=== PATIENT | male | born 1980 | race Caucasian/White ===

== ENCOUNTER 2017-02-21 19:02 | Emergency (ER) | payer OTHER ==
[~2017-02-21] VITALS: Ht 167.6 cm; Wt 68.0 kg
[~2017-02-21 19:02] MED LIST: ALLEGRA180 MG PO; ANUSOL-HC25 MG R; ATIVAN1 MG PO; AUGMENTIN 875875 MG PO; CATAFLAM50 MG PO; CELEXA40 MG PO; DOXYCYCLINE MO100 MG PO; LAMICTAL100 MG PO; LAMICTAL200 MG PO; LATU40TA PO; MIRALAX POWDER255 G1 PO; NATURE'S BLEND F1 MG PO; NKHM; RESTORIL15 MG PO; SEROQUEL XR400 MG PO; TOBREX OPHTH S2.5 ML OPH; TRAMADOL HCL50 MG PO; ULTRAM50 MG PO; ZOLOFT50 MG PO
[2017-02-21] MEDS ORDERED: TEMAZEPAM30 MG PO (19:55)
[2017-02-21] MEDS ORDERED: LAMOTRIGINE150 MG PO (19:55)
[2017-02-21] MEDS ORDERED: MIRALAX POWDER17 G1 PO (21:06)
[2017-02-21] MEDS ORDERED: ANUSOL-HC25 MG R (21:06)
== END 2017-02-21 21:13 | disposition home or self-care (01) ==
LOC: ED 19:02
DX: K59.00 Constipation, unspecified (principal); K62.5 Hemorrhage of anus and rectum; F31.9 Bipolar disorder, unspecified

== ENCOUNTER → 2017-07-01 | Outpatient (CLI) | payer OTHER ==
[~2017-07-01] MED LIST changes: +LAMOTRIGINE150 MG PO; +MIRALAX POWDER17 G1 PO; +TEMAZEPAM30 MG PO
== END | disposition home or self-care (01) ==
LOC: MRI 06-28 08:00
DX: R51 Headache (principal); R41.3 Other amnesia; Z87.820 Personal history of traumatic brain injury

== ENCOUNTER → 2017-08-30 | Day surgery (SDC) | payer OTHER ==
[~2017-08-30] VITALS: Ht 167.6 cm; Wt 70.3 kg
[~2017-08-30] MED LIST changes: +SEROQUEL100 MG PO
--- NOTE | ~2017-08-30 | O ---
[place], [place] OPERATIVE NOTE NAME: JOANNA BLANCHARD UNIT #: [id number] ROOM: DOCTOR: IMTIAZ TURNER MD BIRTHDATE: [birth year] DOS: 08/30/2017 HISTORY OF PRESENT ILLNESS: This is a 36-year-old patient with complaint of blood in stool multiple times. He has been treating self for hemorrhoid. ALLERGIES: No known medication. FAMILY HISTORY: Noncontributory. PAST SURGICAL HISTORY: Unremarkable. PAST MEDICAL HISTORY: Bipolar. SOCIAL HISTORY: Nonsmoker, nonalcohol consumer. No anticoagulants or antiplatelets. PROCEDURE: Today's procedure part of investigation is colonoscopy plus biopsy. PREMEDICATION: Versed and Diprivan. SCOPE: Olympus folding colonoscope 10L video. PROCEDURE IN DETAIL: After putting the patient in left lateral position and application of lubricant to rectal pouch and digital examination, scope was introduced into the rectum 3 cm from the rectal sphincter. 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 Scope was negotiated to the base of cecum, ileocecal valve was defined and photographed. Some retained stool was seen. Rare diverticulosis as well was noticed. After photographic series withdrawn back to the rectal pouch and multiple biopsy from circumferential friable large necrotic carcinoma was noticed, this is approximately 3 cm from rectal sphincter inside and after biopsies and photographic series, the patient extubated, tolerated procedure well. 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 PLAN AND DISCUSSION: CT scan of the abdomen and pelvis with IV contrast and p.o. contrast, ruling out metastasis, oncological repair of chemo and radiation therapy and colorectal surgery for resection afterward after chemoradiation and further involvement as such. I thank you very much indeed for a very kind referral. [place], [place] OPERATIVE NOTE NAME: JOANNA BLANCHARD UNIT #: [id number] ROOM: DOCTOR: IMTIAZ TURNER MD BIRTHDATE: [birth year] IMTIAZ TURNER MD CM:OPRECORD:OPERATIVE NOTE [id number] DORA TURNER MD 08/30/17 0922 interface
[2017-08-30 08:21] VITALS: BP 137/94
[2017-08-30 08:45] VITALS: BP 95/54
[2017-08-30 09:00] VITALS: BP 106/65
[2017-08-30 09:14] VITALS: BP 103/64
== END | disposition home or self-care (01) ==
LOC: SDC 08-28 11:00
DX: C20 Malignant neoplasm of rectum (principal); K57.30 Diverticulosis of large intestine without perforation or abscess without bleeding; F41.9 Anxiety disorder, unspecified; G43.909 Migraine, unspecified, not intractable, without status migrainosus; F31.9 Bipolar disorder, unspecified; Z87.891 Personal history of nicotine dependence; Z79.899 Other long term (current) drug therapy

== ENCOUNTER → 2017-09-04 | Outpatient (CLI) | payer OTHER | END | disposition home or self-care (01) | LOC: CT 09:00 | DX: C20 Malignant neoplasm of rectum (principal); R19.5 Other fecal abnormalities ==

== ENCOUNTER 2018-04-04 05:32 | Emergency (ER) | payer OTHER ==
[~2018-04-04] VITALS: Ht 167.6 cm; Wt 70.3 kg
[2018-04-04 06:10] LABS: BASO % 0.4 % (0.0-1.0); EOS # 0.2 10*3/uL (0.0-0.4); EOS % 2.8 % (1.0-4.0); HEMATOCRIT 40.7 % (42.0-52.0); HEMOGLOBIN 14.1 g/dl (14.0-18.0); LYMPH # 0.8 10*3/uL (1.3-4.4); LYMPH % 14.4 % (27.0-41.0); MEAN CELL VOLUME 87.3 fl (80.0-94.0); MEAN CORPUSCULAR HGB 30.3 pg (27.0-31.0); MEAN CORPUSCULAR HGB CONC 34.6 g/dl (33.0-37.0); MONO # 0.4 10*3/uL (0.1-1.0); MONO % 7.4 % (3.0-9.0); NEUT # 4.3 10*3/uL (2.3-7.9); NEUT % 74.5 % (47.0-73.0); PLATELET COUNT AUTOMATED 350 10*3/uL (130-400); RED BLOOD COUNT 4.66 10*6/uL (4.50-5.90); WHITE BLOOD COUNT 5.7 10*3/uL (4.8-10.8)
[2018-04-04 06:25] LABS: ALKALINE PHOSPHATASE 107 U/L (45-117); BUN 12 mg/dl (7-24); CHLORIDE 108 mmol/L (98-107); POTASSIUM 3.3 mmol/L (3.5-5.1); SGOT/AST 15 IU/L (3-35); SGPT/ALT 31 U/L (12-78); SODIUM 144 mmol/L (136-145); TOTAL PROTEIN 6.8 gm/dL (6.4-8.2)
[2018-04-04] MEDS ORDERED: NORCO 5-325 TA1 EACH PO (06:33)
== END 2018-04-04 06:46 | disposition home or self-care (01) ==
LOC: ED 05:32
PROVIDERS: Student in an Organized Health Care Education/Training Program
DX: C21.8 Malignant neoplasm of overlapping sites of rectum, anus and anal canal (principal); R10.9 Unspecified abdominal pain; Z98.890 Other specified postprocedural states

== ENCOUNTER 2019-04-18 08:20 | Emergency (ER) | payer OTHER ==
[~2019-04-18] VITALS: Ht 167.6 cm; Wt 70.3 kg
[~2019-04-18 08:20] MED LIST changes: +NORCO 5-325 TA1 EACH PO
[2019-04-18] MEDS ORDERED: TRIAMTERENE-HC1 EACH PO (08:25)
[2019-04-18 08:42] LABS: BASO % 0.1 % (0.0-1.0); EOS # 0.1 10*3/uL (0.0-0.4); EOS % 0.8 % (1.0-4.0); HEMOGLOBIN 16.5 g/dl (14.0-18.0); LYMPH # 1.1 10*3/uL (1.3-4.4); LYMPH % 11.4 % (27.0-41.0); MEAN CELL VOLUME 90.7 fl (80.0-94.0); MEAN CORPUSCULAR HGB 31.2 pg (27.0-31.0); MEAN CORPUSCULAR HGB CONC 34.4 g/dl (33.0-37.0); MEAN PLATELET VOLUME 8.5 fl (9.6-12.3); MONO # 0.9 10*3/uL (0.1-1.0); NEUT # 7.6 10*3/uL (2.3-7.9); NEUT % 78.4 % (47.0-73.0); PLATELET COUNT AUTOMATED 193 10*3/uL (130-400); RED BLOOD COUNT 5.29 10*6/uL (4.50-5.90); RED CELL DISTRI WIDTH 13.4 % (0-14.5); WHITE BLOOD COUNT 9.7 10*3/uL (4.8-10.8)
[2019-04-18 08:57] LABS: ALBUMIN 3.4 gm/dl (3.1-4.5); ALKALINE PHOSPHATASE 98 U/L (45-117); BUN 16 mg/dl (7-24); CHLORIDE 102 mmol/L (98-107); CREATININE 1.33 mg/dL (0.70-1.30); LIPASE 83 U/L (73-393); POTASSIUM 3.2 mmol/L (3.5-5.1); SGOT/AST 23 IU/L (3-35); SGPT/ALT 25 U/L (12-78); SODIUM 140 mmol/L (136-145); TOTAL PROTEIN 7.2 gm/dL (6.4-8.2)
[2019-04-18 10:14] LABS: BILIRUBIN NEGATIVE (NEGATIVE); BLOOD NEGATIVE (NEGATIVE); CLARITY SL CLOUDY (CLEAR); COLOR YELLOW (YELLOW); GLUCOSE NEGATIVE (NEGATIVE); KETONE NEGATIVE (NEGATIVE); LEUKO ESTERASE NEGATIVE (NEGATIVE); NITRITE NEGATIVE (NEGATIVE); PH 5.5 (5.0-9.0); SPECIFIC GRAVITY 1.025 (1.005-1.030); UROBILINOGEN 0.2 E.U./dl (0.2-1.0)
[2019-04-18 10:26] LABS: BACTERIA 1+; EPITHELIAL CELLS 0-2; MUCOUS 3+; WBC 0-2 wbc/hpf (0-5)
[2019-05-19] MEDS ORDERED: TADALAFIL5 M1 PO (10:41)
[2019-05-19] MEDS ORDERED: REXULTI2 MG PO (10:42)
[2019-05-21] MEDS ORDERED: NORCO 5-325 TA1 EACH PO (11:21)
== END 2019-04-18 10:19 | disposition home or self-care (01) ==
LOC: ED 08:20
PROVIDERS: Emergency Medicine
DX: S39.011A Strain of muscle, fascia and tendon of abdomen, initial encounter (principal); Z85.038 Personal history of other malignant neoplasm of large intestine; X50.0XXA Overexertion from strenuous movement or load, initial encounter; Y93.89 Activity, other specified; Y92.89 Other specified places as the place of occurrence of the external cause; Y99.8 Other external cause status

== ENCOUNTER 2020-05-19 04:20 | Emergency (ER) | payer OTHER ==
[~2020-05-19] VITALS: Ht 167.6 cm; Wt 74.8 kg
[~2020-05-19 04:20] MED LIST changes: +REXULTI2 MG PO; +TADALAFIL5 M1 PO; +TRIAMTERENE-HC1 EACH PO
[2020-05-19] MEDS ORDERED: CYCLOBENZAPRINE10 MG PO (04:38)
[2020-05-19] MEDS ORDERED: IBUPROFEN600 MG PO (04:38)
== END 2020-05-19 05:03 | disposition home or self-care (01) ==
LOC: ED 04:20
DX: S29.012A Strain of muscle and tendon of back wall of thorax, initial encounter (principal); Z79.899 Other long term (current) drug therapy; X58.XXXA Exposure to other specified factors, initial encounter; Y93.89 Activity, other specified; Y92.89 Other specified places as the place of occurrence of the external cause; Y99.8 Other external cause status

== ENCOUNTER → 2020-09-02 | Outpatient (CLI) | payer OTHER, MEDICAID ==
[~2020-09-02] MED LIST changes: +CYCLOBENZAPRINE10 MG PO; +IBUPROFEN600 MG PO
[2020-09-02 12:14] LABS: BASO % 0.3 % (0.0-1.0); EOS # 0.1 10*3/uL (0.0-0.4); EOS % 1.4 % (1.0-4.0); HEMATOCRIT 50.1 % (42.0-52.0); LYMPH # 1.2 10*3/uL (1.3-4.4); LYMPH % 20.2 % (27.0-41.0); MEAN CELL VOLUME 88.7 fl (80.0-94.0); MEAN CORPUSCULAR HGB CONC 34.9 g/dl (33.0-37.0); MEAN PLATELET VOLUME 8.9 fl (9.6-12.3); MONO # 0.5 10*3/uL (0.1-1.0); NEUT % 68.8 % (47.0-73.0); PLATELET COUNT AUTOMATED 222 10*3/uL (130-400); RED BLOOD COUNT 5.65 10*6/uL (4.50-5.90); WHITE BLOOD COUNT 5.8 10*3/uL (4.8-10.8)
[2020-09-02 12:32] LABS: ALBUMIN 3.6 gm/dl (3.1-4.5); ALKALINE PHOSPHATASE 90 U/L (45-117); BUN 21 mg/dl (7-24); CHLORIDE 101 mmol/L (98-107); CREATININE 1.47 mg/dL (0.70-1.30); POTASSIUM 3.3 mmol/L (3.5-5.1); SGOT/AST 40 IU/L (3-35); SGPT/ALT 41 U/L (12-78); SODIUM 138 mmol/L (136-145); TOTAL PROTEIN 7.4 gm/dL (6.4-8.2)
[2020-09-02 12:35] LABS: CEA 2.5 ng/mL
== END | disposition home or self-care (01) ==
LOC: LAB 11:55
PROVIDERS: ATTEND Internal Medicine
DX: C20 Malignant neoplasm of rectum (principal); D50.0 Iron deficiency anemia secondary to blood loss (chronic); K62.7 Radiation proctitis; Z51.11 Encounter for antineoplastic chemotherapy

== ENCOUNTER → 2020-12-04 | Outpatient (CLI) | payer OTHER ==
[2020-12-04 08:18] LABS: BASO % 0.4 % (0.0-1.0); EOS # 0.1 10*3/uL (0.0-0.4); EOS % 2.5 % (1.0-4.0); HEMATOCRIT 49.3 % (42.0-52.0); LYMPH # 1.3 10*3/uL (1.3-4.4); LYMPH % 25.8 % (27.0-41.0); MEAN CELL VOLUME 92.3 fl (80.0-94.0); MEAN CORPUSCULAR HGB 31.6 pg (27.0-31.0); MEAN CORPUSCULAR HGB CONC 34.3 g/dl (33.0-37.0); MEAN PLATELET VOLUME 9.2 fl (9.6-12.3); MONO # 0.6 10*3/uL (0.1-1.0); MONO % 11.4 % (3.0-9.0); NEUT # 3.1 10*3/uL (2.3-7.9); NEUT % 59.5 % (47.0-73.0); PLATELET COUNT AUTOMATED 218 10*3/uL (130-400); RED BLOOD COUNT 5.34 10*6/uL (4.50-5.90); RED CELL DISTRI WIDTH 13.3 % (0-14.5); WHITE BLOOD COUNT 5.2 10*3/uL (4.8-10.8)
[2020-12-04 08:54] LABS: ALBUMIN 3.3 gm/dl (3.1-4.5); ALKALINE PHOSPHATASE 87 U/L (45-117); BILIRUBIN, DIRECT 0.1 mg/dL (0.0-0.2); BUN 21 mg/dl (7-24); CHLORIDE 107 mmol/L (98-107); CREATININE 1.39 mg/dL (0.70-1.30); POTASSIUM 3.5 mmol/L (3.5-5.1); SGOT/AST 32 IU/L (3-35); SGPT/ALT 36 U/L (12-78); SODIUM 141 mmol/L (136-145); TOTAL PROTEIN 7.1 gm/dL (6.4-8.2)
[2020-12-05 12:06] LABS: PROSTATE SPECIFIC AG FREE 0.07 ng/mL; PROSTATE SPECIFIC AG, SERUM 0.8 ng/mL (0.0-4.0)
[2020-12-08 15:08] LABS: TESTOSTERONE FREE, (DIRECT) 4.5 pg/mL (6.8-21.5)
== END | disposition home or self-care (01) ==
LOC: LAB 07:57
PROVIDERS: ATTEND Urology
DX: Z00.00 Encounter for general adult medical examination without abnormal findings (principal); E29.1 Testicular hypofunction

== ENCOUNTER → 2021-02-02 | Outpatient (CLI) | payer MEDICARE | END | disposition home or self-care (01) | LOC: US 16:00 | PROVIDERS: ATTEND Internal Medicine Nephrology | DX: N18.31 Chronic kidney disease, stage 3a (principal) ==

== ENCOUNTER → 2022-08-27 | Outpatient (CLI) | payer MEDICARE | END | disposition home or self-care (01) | LOC: LAB 08:04 | PROVIDERS: ATTEND Nurse Practitioner | DX: R19.7 Diarrhea, unspecified (principal) ==

== ENCOUNTER → 2024-01-10 | Outpatient (CLI) | payer MEDICARE | END | disposition home or self-care (01) | LOC: US 00:40 | PROVIDERS: ATTEND Internal Medicine | DX: R19.00 Intra-abdominal and pelvic swelling, mass and lump, unspecified site (principal); L98.9 Disorder of the skin and subcutaneous tissue, unspecified ==